=== PATIENT | male | born 1965 | race Caucasian/White ===

== ENCOUNTER → 2017-01-20 | Outpatient (CLI) | payer MEDICARE, OTHER ==
--- NOTE | ~2017-01-20 | MR104 ---
[facility] A Service of [facility] RADIOLOGY TEXT RESULTS PATIENT: NOLBERTO RIVAS JR LOCATION: [facility] : 63 UNIT #: [id number] AGE: [address]: Billy Vincetn MD SEX: M ORDER DR: [id number] [facility] [address] [place], [place] [address] [id number] O MR#: [id number] Acc #: [id number] NAME: NOLBERTO RIVAS : 1965 SEX: M STUDY DATE/TIME: 01/20/2017 16:52 UNIT: [facility] ROOM: STUDY DESCRIPTION: MR Knee Wo Contrast Rt Attending Physician: Billy Vincent M.D. Referring Physician: Billy Vincent M.D. Ordering Physician: Billy Vincent M.D. Primary Care Physician: Prema Lindsay M.D. MRI CENTER REPORT This report is preliminary unless electronic signature is present. EXAM MRI right knee INDICATIONS 51-year-old male states medial knee pain for 2 months, unable to walk without using wheelchair, swelling, knee gives out. COMPARISON Right knee films 11/15/2016 FINDINGS Multiplanar multiecho imaging was performed of the right knee utilizing a high field magnet dedicated protocol. The examination demonstrates extensive marrow edema throughout the medial femoral condyle. Marrow pattern is nonspecific but most likely represents transient osteoporosis or spontaneous osteonecrosis of the knee. No evidence of subchondral fracture or collapse. Minimal knee effusion. In the medial compartment there is a small longitudinal oblique tear undersurface posterior horn medial meniscus estimated no more than 6 mm in length. No displaced meniscal fragment. Medial compartment articular cartilage appears intact. In the lateral compartment the meniscus and articular cartilage appears normal. The patellar and trochlear cartilage unremarkable. The cruciate and collateral ligaments appear normal. The extensor mechanism unremarkable. A small amount of fluid is noted in the deep infrapatellar bursa. IMPRESSION 1. Extensive marrow edema throughout the medial femoral condyle pattern nonspecific but most likely represents a transient osteoporosis of [facility] A Service of [facility] RADIOLOGY TEXT RESULTS PATIENT: NOLBERTO RIVAS JR LOCATION: [facility] : 63 UNIT #: [id number] AGE: [address]: Billy Vincent MD SEX: M ORDER DR: the knee or spontaneous osteonecrosis. No evidence of subchondral fracture or collapse. 2. Small developing longitudinal oblique tear undersurface posterior horn medial meniscus. Dictated by... Adriana Garcia M.D. THIS IS AN ELECTRONICALLY VERIFIED REPORT Adriana Garcia M.D. at 01/22/2017 12:27 PM BALBIR/elena TD: 01/21/2017 11:27 JOB #: [id number] MRI CENTER REPORT Page 1 of 1 COPY
== END | disposition home or self-care (01) ==
LOC: CMRI 15:35
DX: M17.11 Unilateral primary osteoarthritis, right knee (principal); S83.241A Other tear of medial meniscus, current injury, right knee, initial encounter; R60.0 Localized edema
CPT/HCPCS: 73721